=== PATIENT | male | born 1980 | race African-American/Black ===

== ENCOUNTER 2022-01-02 18:03 | Inpatient (IN) | payer OTHER ==
[2022-01-02 18:54] VITALS: BMI 17.3
[2022-01-02] MEDS ORDERED: NICOTINE 10 MG CARTRIDGE (INHALER) IH PRN (19:18)
[2022-01-02] MEDS ORDERED: ONDANSETRON *ODT* 4 MG TABLET SL PRN (19:18)
[2022-01-02] MEDS ORDERED: BISMUTH SUBSALICYLATE 524 MG/30 ML PO PRN (19:18)
[2022-01-02] MEDS ORDERED: ACETAMINOPHEN 325 MG TABLET (FP) PO PRN ×2 (19:18)
[2022-01-02] MEDS ORDERED: BENZOCAINE/MENTHOL (CHLORASEPTIC ) LOZENGE MM PRN (19:18)
[2022-01-02] MEDS ORDERED: IBUPROFEN 600 MG TABLET (FP) PO PRN (19:18)
[2022-01-02] MEDS ORDERED: MAG HYDROX/AL HYDROX/SIMETH 30 ML UNIT-DOSE CUP PO PRN (19:18)
[2022-01-02] MEDS ORDERED: DICYCLOMINE HCL 10 MG CAPSULE PO PRN (19:18)
[2022-01-02] MEDS ORDERED: MAGNESIUM CITRATE 300 ML BOTTLE PO PRN (19:18)
[2022-01-02] MEDS ORDERED: IBUPROFEN 400 MG TABLET (FP) PO PRN (19:18)
[2022-01-02] MEDS ORDERED: LOPERAMIDE HCL 2 MG CAPSULE PO PRN (19:18)
[2022-01-02] MEDS ORDERED: METHOCARBAMOL 500 MG TABLET PO PRN (19:18)
[2022-01-02] MEDS ORDERED: MAGNESIUM HYDROX 2400MG/30ML ORAL SUSPENSION 30 ML CUP PO PRN (19:18)
[2022-01-02] MEDS: hydrOXYzine PAMOATE 25 MG CAPSULE (FP) PO SCH (22:13)
[2022-01-02] MEDS: MELATONIN 5 MG TABLETS PO SCH (22:13)
[2022-01-02] MEDS: THIAMINE HCL 100 MG TABLET (FP) PO SCH (22:13)
[2022-01-03] MEDS: hydrOXYzine PAMOATE 25 MG CAPSULE (FP) PO SCH ×5 (07:18→22:12)
[2022-01-03] MEDS ORDERED: chlordiazePOXIDE HCL 25 MG CAPSULE PO PRN (10:27)
[2022-01-03] MEDS: PRENATAL VITAMINS W/ FOLIC ACID TABLET (FP) PO SCH (11:20)
[2022-01-03] MEDS: chlordiazePOXIDE HCL 25 MG CAPSULE PO SCH ×3 (11:20→22:12)
[2022-01-03 11:51] LABS: HEMATOCRIT 37.5 % (35.4-49); HEMOGLOBIN 12.4 GM/dL (11.7-16.9); MCH 29.1 pg (25.7-33.7); MCHC 33.2 g/dl (32.0-35.9); MEAN CELL VOLUME 87.7 fl (80-96); MEAN PLT VOLUME 8.3 fl (7.5-11.1); PLATELET COUNT 191 10^3/uL (134-434); RBC 4.27 M/mm3 (4.00-5.60); RDW 14.2 % (11.9-15.9); WHITE BLOOD COUNT 4.6 K/mm3 (4.0-10.0)
[2022-01-03 12:33] LABS: ALBUMIN 3.2 g/dl (3.4-5.0); BLOOD UREA NITROGEN 13.5 mg/dL (7-18); CALCIUM 8.6 mg/dL (8.5-10.1)
[2022-01-03 12:36] LABS: CREATININE 0.7 mg/dL (0.55-1.3)
[2022-01-03 12:38] LABS: TOT PROT 6.6 g/dl (6.4-8.2)
[2022-01-03] MEDS: THIAMINE HCL 100 MG TABLET (FP) PO SCH (22:12)
[2022-01-03] MEDS: MELATONIN 5 MG TABLETS PO SCH (22:13)
[2022-01-04] MEDS: chlordiazePOXIDE HCL 25 MG CAPSULE PO SCH ×2 (04:40→11:07)
[2022-01-04] MEDS: hydrOXYzine PAMOATE 25 MG CAPSULE (FP) PO SCH ×2 (05:57→11:07)
[2022-01-04] MEDS: PRENATAL VITAMINS W/ FOLIC ACID TABLET (FP) PO SCH (11:07)
[2022-01-04 18:38] VITALS: BP 104/60; PULSE 82; TEMP 97.5
[2022-01-04] MEDS ORDERED: RISPERIDONE PO SCH (22:00)
[2022-01-04] MEDS ORDERED: risperiDONE 0.5 MG TABLET PO SCH (22:00)
[2022-01-05] MEDS ORDERED: chlordiazePOXIDE HCL 25 MG CAPSULE PO SCH (05:00)
[2022-01-06] MEDS ORDERED: chlordiazePOXIDE HCL 10 MG CAPSULE PO PRN
[2022-01-06] MEDS ORDERED: chlordiazePOXIDE HCL 10 MG CAPSULE PO SCH (05:00)
[2022-01-07] MEDS ORDERED: chlordiazePOXIDE HCL 10 MG CAPSULE PO SCH (05:00)
[2022-01-08] MEDS ORDERED: chlordiazePOXIDE HCL 10 MG CAPSULE PO ONE (05:00)
== END 2022-01-04 17:54 | disposition left against medical advice (07) | DRG 770 ==
LOC: YASAS 18:03 → Y6N 18:58
PROVIDERS: ADMIT Allergy & Immunology; ATTEND Surgery
PROC: HZ2ZZZZ Detoxification Services for Substance Abuse Treatment (ICD-10-PCS; principal; 2022-01-02)
DX: F10.230 Alcohol dependence with withdrawal, uncomplicated (principal); F12.20 Cannabis dependence, uncomplicated; F17.210 Nicotine dependence, cigarettes, uncomplicated; F20.9 Schizophrenia, unspecified; Z62.810 Personal history of physical and sexual abuse in childhood; Z28.310 Unvaccinated for COVID-19; Z87.11 Personal history of peptic ulcer disease; Z88.0 Allergy status to penicillin
CPT/HCPCS: 36415; 80053; 85027; 86780; C9803-CS; U0003; U0005

== ENCOUNTER 2023-04-28 10:01 | Inpatient (IN) | payer OTHER ==
[2023-04-28 10:42] VITALS: BMI 18.2
[2023-04-28] MEDS ORDERED: IBUPROFEN 400 MG TABLET (FP) PO PRN (11:49)
[2023-04-28] MEDS ORDERED: BENZONATATE 200 MG CAPSULE PO PRN (11:49)
[2023-04-28] MEDS ORDERED: MAGNESIUM HYDROX 2400MG/30ML ORAL SUSPENSION 30 ML CUP PO PRN (11:49)
[2023-04-28] MEDS ORDERED: DICYCLOMINE HCL 10 MG CAPSULE PO PRN (11:49)
[2023-04-28] MEDS ORDERED: MAG HYDROX/AL HYDROX/SIMETH 30 ML UNIT-DOSE CUP PO PRN (11:49)
[2023-04-28] MEDS ORDERED: guaiFENesin 600 MG TABLET.ER (FP) PO PRN (11:49)
[2023-04-28] MEDS ORDERED: IBUPROFEN 600 MG TABLET (FP) PO PRN (11:49)
[2023-04-28] MEDS ORDERED: BENZOCAINE/MENTHOL (CHLORASEPTIC ) LOZENGE MM PRN (11:49)
[2023-04-28] MEDS ORDERED: METHOCARBAMOL 500 MG TABLET PO PRN (11:49)
[2023-04-28] MEDS ORDERED: ACETAMINOPHEN 325 MG TABLET (FP) PO PRN (11:49)
[2023-04-28] MEDS ORDERED: NALOXONE HCL 0.4 MG/ML VIAL IM PRN (11:49)
[2023-04-28] MEDS ORDERED: NALOXONE HCL (KLOXXADO) 8 MG SPRAY NS PRN (11:49)
[2023-04-28] MEDS ORDERED: chlordiazePOXIDE HCL 25 MG CAPSULE PO PRN (11:49)
[2023-04-28] MEDS ORDERED: ONDANSETRON *ODT* 4 MG TABLET SL PRN (11:49)
[2023-04-28] MEDS ORDERED: LOPERAMIDE HCL 2 MG CAPSULE PO PRN (11:49)
[2023-04-28] MEDS ORDERED: POLYETHYLENE GLYCOL (HEALTHYLAX) 3350 17 GM PACKET PO PRN (11:49)
[2023-04-28] MEDS ORDERED: BISMUTH SUBSALICYLATE 262 MG/15 ML BTL PO PRN (11:49)
[2023-04-28] MEDS ORDERED: hydrOXYzine PAMOATE 25 MG CAPSULE (FP) PO PRN (11:49)
[2023-04-28] MEDS: PRENATAL VITAMINS W/ FOLIC ACID TABLET (FP) PO SCH (12:52)
[2023-04-28] MEDS: NICOTINE 7 MG/24 HOURS TOPICAL PATCH TD SCH (12:52)
[2023-04-28] MEDS: chlordiazePOXIDE HCL 25 MG CAPSULE PO SCH ×2 (17:13→22:26)
[2023-04-28] MEDS: THIAMINE HCL 100 MG TABLET (FP) PO SCH (22:26)
[2023-04-28] MEDS: MELATONIN 5 MG TABLETS PO SCH (22:28)
[2023-04-29] MEDS: chlordiazePOXIDE HCL 25 MG CAPSULE PO SCH ×4 (05:27→22:50)
[2023-04-29 10:20] LABS: POTASSIUM 4.2 mmol/L (3.5-5.1)
[2023-04-29 10:28] LABS: HEMATOCRIT 42.5 % (35.4-49); HEMOGLOBIN 13.8 GM/dL (11.7-16.9); MCH 28.8 pg (25.7-33.7); MCHC 32.5 g/dl (32.0-35.9); MEAN CELL VOLUME 88.6 fl (80-96); MEAN PLT VOLUME 8.8 fl (7.5-11.1); PLATELET COUNT 312 10^3/uL (134-434); RDW 15.1 % (11.9-15.9); WHITE BLOOD COUNT 4.5 K/mm3 (4.0-10.0)
[2023-04-29] MEDS: NICOTINE 7 MG/24 HOURS TOPICAL PATCH TD SCH (10:32)
[2023-04-29] MEDS: PRENATAL VITAMINS W/ FOLIC ACID TABLET (FP) PO SCH (10:32)
[2023-04-29 10:35] LABS: CALCIUM 9.2 mg/dL (8.5-10.1)
[2023-04-29 10:36] LABS: ALBUMIN 3.6 g/dl (3.4-5.0); BLOOD UREA NITROGEN 9.2 mg/dL (7-18)
[2023-04-29 10:39] LABS: CREATININE 0.8 mg/dL (0.55-1.3)
[2023-04-29 10:40] LABS: BILIRUBIN,TOTAL 0.5 mg/dL (0.2-1); TOT PROT 7.9 g/dl (6.4-8.2)
[2023-04-29] MEDS: THIAMINE HCL 100 MG TABLET (FP) PO SCH (22:48)
[2023-04-29] MEDS: MELATONIN 5 MG TABLETS PO SCH (22:50)
[2023-04-30] MEDS: chlordiazePOXIDE HCL 25 MG CAPSULE PO SCH ×2 (05:41→10:35)
[2023-04-30] MEDS: PRENATAL VITAMINS W/ FOLIC ACID TABLET (FP) PO SCH (10:33)
[2023-04-30] MEDS: NICOTINE 7 MG/24 HOURS TOPICAL PATCH TD SCH (10:34)
[2023-04-30] MEDS ORDERED: LORazepam 1 MG TABLET PO PRN (13:11)
[2023-04-30] MEDS: LORazepam 2 MG TABLET PO SCH ×2 (17:33→22:32)
[2023-04-30] MEDS: THIAMINE HCL 100 MG TABLET (FP) PO SCH (22:32)
[2023-04-30] MEDS: MELATONIN 5 MG TABLETS PO SCH (23:07)
[2023-05-01] MEDS ORDERED: chlordiazePOXIDE HCL 10 MG CAPSULE PO PRN
[2023-05-01] MEDS ORDERED: chlordiazePOXIDE HCL 10 MG CAPSULE PO SCH (05:00)
[2023-05-01] MEDS: LORazepam 1 MG TABLET PO SCH ×2 (05:51→10:37)
[2023-05-01 07:24] VITALS: RESP 18
[2023-05-01 09:23] VITALS: BP 128/58; PULSE 61; TEMP 97.1
[2023-05-01] MEDS: NICOTINE 7 MG/24 HOURS TOPICAL PATCH TD SCH (10:36)
[2023-05-01] MEDS: PRENATAL VITAMINS W/ FOLIC ACID TABLET (FP) PO SCH (10:36)
[2023-05-02] MEDS ORDERED: LORazepam 0.5 MG TABLET PO SCH (05:00)
[2023-05-02] MEDS ORDERED: chlordiazePOXIDE HCL 10 MG CAPSULE PO SCH (05:00)
[2023-05-03] MEDS ORDERED: LORazepam 0.5 MG TABLET PO ONE (05:00)
[2023-05-03] MEDS ORDERED: chlordiazePOXIDE HCL 10 MG CAPSULE PO ONE (05:00)
== END 2023-05-01 11:15 | disposition left against medical advice (07) | DRG 770 ==
LOC: YASAS 10:01 → Y6N 12:38
PROVIDERS: ADMIT Allergy & Immunology; ATTEND Surgery
PROC: HZ2ZZZZ Detoxification Services for Substance Abuse Treatment (ICD-10-PCS; principal; 2023-04-28)
DX: F10.230 Alcohol dependence with withdrawal, uncomplicated (principal); F12.20 Cannabis dependence, uncomplicated; F17.213 Nicotine dependence, cigarettes, with withdrawal; F20.9 Schizophrenia, unspecified; R74.01 Elevation of levels of liver transaminase levels; Z87.11 Personal history of peptic ulcer disease; Z88.0 Allergy status to penicillin
CPT/HCPCS: 36415; 80053; 80307; 85027; 86780; 87811